=== PATIENT | female | born 1995 | race Two or more races ===

== ENCOUNTER 2025-04-25 23:40 | Emergency (ER) | payer MEDICAID, OTHER ==
[~2025-04-25] VITALS: Ht 165.1 cm; Wt 87.7 kg
--- NOTE | 2025-04-26 00:49 | ED.PDOC ---
History of Present Illness HPI Comments 29-year-old, obese female presents with spouse for chief complaint of nonradiating, RUQ abdominal pain. Significant history for cholecystectomy - 3 years ago. Patient endorses on sudden, unprovoked, atraumatic onset of pain 1 hour prior to ED arrival. She also endorses on having diarrhea with last bowel movement, this morning. Last menstrual period was 04/22/2025. Denial of any nausea, vomiting, constipation, urinary problems, fever, or further acute symptoms. Chief Complaint: Abdominal Pain Time Seen by MD: 00:30 Reviewed Notes: Nurses Notes, Medications, Allergies Allergies: Coded Allergies: NO KNOWN ALLERGIES (Unverified , 04/25/25) Information Source: Patient Mode of Arrival: Ambulatory Severity: Moderate Timing: Hours Duration: Since onset Prehospital treatment: None Past Medical History PAST MEDICAL HISTORY: Denies Surgical History: Cholecystectomy TACTICAL INTELLIGENCE OFFICER History: Denies all TACTICAL INTELLIGENCE OFFICER Hx Family History Family History: Unknown Social History Smoker: Non-Smoker Alcohol: Denies ETOH Use Drugs: Denies Drug Use Lives In: Home All Other Systems: Reviewed and Negative (Comprehensive review of systems are negative unless stated in HPI) Physical Exam General Appearance: No Apparent Distress, Obese HEENT: Normal ENT Inspection, Pharynx Normal, TMs Normal Neck: Full Range of Motion, Non-Tender, Normal, Normal Inspection Respiratory: Chest Non-Tender, Lungs Clear, No Accessory Muscle Use, No Respiratory Distress, Normal Breath Sounds Cardiovascular: No Edema, No JVD, No Murmur, No Gallop, Normal Peripheral Pulses, Regular Rate/Rhythm Breast Exam: Deferred Gastrointestinal: Epigastric (Tenderness), No Organomegaly, No Pulsatile Mass, Normal Bowel Sounds, Soft, Tenderness (Epigastric region) Genitalia: Deferred Pelvic: Deferred Rectal: Deferred Extremities: No calf tenderness, Normal capillary refill, Normal inspection, Normal range of motion, Non-tender, No pedal edema Musculoskeletal : Apperance: Normal Neurologic: Alert, concessions manager II-XII nml as Tested, No Motor Deficits, Normal Affect, Normal Mood, No Sensory Deficits Cerebellar Function: Normal Reflexes: Normal Skin: Dry, Normal Color, Warm Lymphatic: No Adenopathy Was a procedure done? Was a procedure done?: No Differential Dx Considerations may include: Gastritis, GERD, PUD, cholelithiasis, UTI, viral syndrome, electrolyte imbalance, dehydration, among others X-Ray, Labs, Meds, VS Vital Signs Date Time Temp Pulse Resp B/P (MAP) Pulse Ox O2 Delivery O2 Flow Rate FiO2 04/26/25 03:16 97.8 62 18 130/80 (97) 100 97.8 04/26/25 00:58 98.3 77 18 124/77 (93) 99 98.3 04/25/25 23:52 98.3 75 16 25/72 98 98.3 Lab Test 04/26/25 00:50 04/26/25 00:45 Range/Units Urine Color Yellow Yellow Urine Clarity Clear Clear Urine pH 5.5 5.0-9.0 Urine Specific [place] 1.027 1.001-1.035 Urine Protein Trace H Negative Urine Ketones Trace Negative Urine Blood 1+ H Negative /uL Urine Nitrite Negative Negative Urine Bilirubin Negative Negative Urine Urobilinogen Normal Negative mg/dL Urine Leukocyte Esterase Negative Negative /uL Urine RBC 2 0 - 4 /hpf Urine Microscopic WBC 2 0-5 /HPF Urine Squamous Epithelial Cells Few <5 /hpf Urine Bacteria None seen None Seen /hpf Urine Mucus Few None Seen Urine Glucose Normal Normal mg/dL White Blood Count 10.5 4.4-10.8 10^3/uL Red Blood Count 4.62 4.0-5.20 10^6/uL Hemoglobin 12.3 12.2-16.2 g/dL Hematocrit 36.8 36.0-46.0 % Mean Corpuscular Volume 79.7 L 80.0-100.0 fL Mean Corpuscular Hemoglobin 26.6 L 28.0-32.0 pg Mean Corpuscular Hemoglobin Concent 33.4 32.0-36.0 g/dL Red Cell Distribution Width 14.4 H 11.8-14.3 % Platelet Count 301 140-450 10^3/uL Mean Platelet Volume 8.5 6.9-10.8 fL Neutrophils (%) (Auto) 70.7 37.0-80.0 % Lymphocytes (%) (Auto) 23.5 10.0-50.0 % Monocytes (%) (Auto) 3.8 0.0-12.0 % Eosinophils (%) (Auto) 1.4 0.0-7.0 % Basophils (%) (Auto) 0.6 0.0-2.0 % Neutrophils # (Auto) 7.4 1.6-8.6 10 ^3/uL Lymphocytes # (Auto) 2.5 0.4-5.4 10 ^3/uL Monocytes # (Auto) 0.4 0-1.3 10 ^3/uL Eosinophils # (Auto) 0.1 0-0.8 10 ^3/uL Basophils # (Auto) 0.1 0-0.2 10 ^3/uL Nucleated Red Blood Cells 0.0 % Sodium Level 143 136-145 mmol/L Potassium Level 3.8 3.5-5.1 mmol/L Chloride Level 106 98-107 mmol/L Carbon Dioxide Level 27 20-31 mmol/L Anion Gap 10 5-15 Blood Urea Nitrogen 7 L 9-23 mg/dL Creatinine 0.64 0.550-1.02 mg/dL Glomerular Filtration Rate Calc 123 >90 mL/min BUN/Creatinine Ratio 10.9 10.0-20.0 Serum Glucose 106 74-106 mg/dL Calcium Level 9.2 8.7-10.4 mg/dL Lipase 26 12-53 U/L Beta HCG, Quantitative 0.5 L 1.5-4.2 mIU/mL Current Medications Medications (Trade) Dose Ordered Sig/Kirill Route Start Time Stop Time Status Last Admin Al Hydrox/Mg Hydrox/Simethicone (Maalox Plus) 15 ml ONCE ONCE PO 04/26/25 00:45 04/26/25 00:46 DC 04/26/25 00:57 Time of 1ST Reevaluation: 01:00 Reevaluation 1ST: Unchanged Patient Education/Counseling: Diagnosis, Treatment, Need For Follow Up Family Education/Counseling: Diagnosis, Treatment, Need For Follow Up Comments This is a patient who presents with epigastric pain. She has status post cholecystectomy. She does not have any evidence of pancreatitis. GI cocktail completely relieved her symptoms. She is not . Electrolytes are n ormal. She does not have leukocytosis. I will start her on Protonix for gastritis. She needs follow up with her primary doctor Additional Information Previous visits reviewed: n/a Labs ordered: BMP, UA, lipase, beta hCG quant, CBC Images reviewed: KUB abdomen x-ray Additional historian is interviewed: n/a SEPSIS Sepsis Screen Date sepsis recognized/suspect: Apr 25, 2025 Time Sepsis recognized/suspect: 2353 Recent Procedure: No On Antibiotic Therapy: No Respiratory Rate >20: No Heart Rate >90: No Temp<36 C (96.8 F) or >38.3 C: No SBP <90 or MAP <65 mmHG: No New Acute Mental Status Change: No Is the patient on CPAP, BIPAP,: No Physician Orders Kub Abdomen Single View (04/26/25 00:35) Vital Signs Date Time Temp Pulse Resp B/P (MAP) Pulse Ox O2 Delivery O2 Flow Rate FiO2 04/26/25 03:16 97.8 62 18 130/80 (97) 100 97.8 04/26/25 00:58 98.3 77 18 124/77 (93) 99 98.3 04/25/25 23:52 98.3 75 16 25/72 98 98.3 Laboratory Tests Test 04/26/25 00:45 White Blood Count 10.5 10^3/uL (4.4-10.8) Medications Medications Dose Ordered Sig/Kirill Route Start Time Stop Time Status Last Admin Dose Admin Al Hydrox/Mg Hydrox/Simethicone 15 ml ONCE ONCE PO 04/26/25 00:45 04/26/25 00:46 DC 04/26/25 00:57 Departure 1 Departure Time of Disposition: 03:27 Impression: Primary Impression: Gastritis Disposition: 01 HOME / SELF CARE / HOMELESS Condition: Stable e-Prescriptions Pantoprazole Sodium Sesquihydr (Protonix) 40 Mg Tab 40 MG PO DAILY, #30 TAB Prov: BENNIE PIERRE MD 04/26/25 Discharged With: Self Critical Care Note Critical Care Time?: No Stability Stability form required: No Heart Score Heart Score: Heart Score Response (Comments) Value History N/A 0 EKG N/A 0 Age N/A 0 Risk Factors N/A 0 Troponin N/A 0 Total 0 I personally scribed for BENNIE PIERRE MD ([email or web address]) on 04/26/25 at 00:49. Electronically submitted by Cj Mike [email or web address]). BENNIE PIERRE MD Apr 26, 2025 00:49
[2025-04-26 00:51] LABS: Hemoglobin 12.3 g/dL (12.2-16.2); Nucleated Red Blood Cells % 0.0 %
[2025-04-26 00:53] LABS: Hematocrit 36.8 % (36.0-46.0); Mean Corpuscular Hemoglobin 26.6 pg (28.0-32.0); Mean Corpuscular Volume 79.7 fL (80.0-100.0)
[2025-04-26] MEDS: MAALOX PLUS or MAALOX 30 ML PO ONE (00:57)
[2025-04-26 01:00] LABS: Chloride 106 mmol/L (98-107); Potassium 3.8 mmol/L (3.5-5.1); Sodium 143 mmol/L (136-145)
[2025-04-26 01:01] LABS: Anion Gap 10 (5-15); Carbon Dioxide 27 mmol/L (20-31)
[2025-04-26 01:02] LABS: Calcium 9.2 mg/dL (8.7-10.4)
[2025-04-26 01:07] LABS: BUN/Creatinine Ratio 10.9 (10.0-20.0); Lipase 26 U/L (12-53)
[2025-04-26 01:10] LABS: Blood Urea Nitrogen 7 mg/dL (9-23); Glucose 106 mg/dL (74-106)
[2025-04-26 01:24] LABS: Urine Protein, UAD TRACE (Negative)
--- NOTE | 2025-04-26 03:02 | DVH ---
Exam: XY KUB ABDOMEN SINGLE VIEW Indication: r/o constipation Comparison: None Technique: Single radiographic view of the abdomen. Findings: Right upper quadrant surgical clips. Nonobstructive bowel gas pattern noted. There is no definite evidence for pneumoperitoneum. No abnormal calcifications noted. Impression: 1. Nonobstructive bowel gas pattern.
[2025-04-26 03:16] VITALS: BP 130/80; PULSE 62; RESP 18; TEMP 97.8; O2SAT 100
[2025-04-26] MEDS ORDERED: PANT40TA2 PO (03:27)
== END 2025-04-26 03:47 | disposition home or self-care (01) ==
LOC: ER 23:40
DX: K29.70 Gastritis, unspecified, without bleeding (principal); E66.9 Obesity, unspecified; Z90.49 Acquired absence of other specified parts of digestive tract; Z68.32 Body mass index [BMI] 32.0-32.9, adult
CPT/HCPCS: 36415; 74018; 80048; 81001; 83690; 84702; 85025